=== PATIENT | female | born 1985 | race African-American/Black ===

== ENCOUNTER 2016-07-10 09:51 | Inpatient (IN) | payer MEDICAID, OTHER ==
[~2016-07-10] VITALS: Ht 175.3 cm; Wt 97.5 kg
[~2016-07-10 09:51] MED LIST: AMOXICILLIN500 MG ORAL; BACITRACIN15 GM TOPIC; CORTISPORIN-TC10 M1; NKM
[2016-07-10 10:45] VITALS: BP 124/76
[2016-07-10 11:47] VITALS: BP 136/74
[2016-07-10 12:02] LABS: BASOPHILS % (AUTO) 1.8 % (0.0-2.0); EOSINOPHILS % (AUTO) 1.4 % (0.0-3.0); LYMPHOCYTES % (AUTO) 41.3 % (20.0-45.0); MEAN CORPUSCULAR HEMOGLOBIN 29.4 PG (27.0-31.0); MEAN CORPUSCULAR HGB CONC 32.9 G/DL (32.0-36.0); MEAN CORPUSCULAR VOLUME 89 FL (80-99); MEAN PLATELET VOLUME 8.2 FL (6.5-10.1); MONOCYTES % (AUTO) 12.2 % (1.0-10.0); NEUTROPHILS % (AUTO) 43.4 % (45.0-75.0); PLATELET COUNT 208 K/UL (150-450); RED BLOOD COUNT 4.42 M/UL (4.20-5.40); RED CELL DISTRIBUTION WIDTH 11.1 % (11.6-14.8); WHITE BLOOD COUNT 3.7 K/UL (4.8-10.8)
[2016-07-10 12:03] LABS: APPEARANCE,URINE SLIGHTLY CLOUDY; KETONES,URINE NEGATIVE (NEGATIVE); LEUKOCYTE ESTERASE ,URINE 2+ (NEGATIVE); NITRITE,URINE NEGATIVE (NEGATIVE); PH,URINE 6 (4.5-8.0); PROTEIN,URINE 2+ (NEGATIVE); UROBILINOGEN,URINE 1 MG/DL (0.0-1.0)
[2016-07-10 12:06] LABS: ICTOTEST NEGATIVE
[2016-07-10 12:15] LABS: ALANINE AMINOTRANSFERASE 13 U/L (3-33); ANION GAP 13 (5-15); ASPARTATE AMINO TRANSFERASE 19 U/L (5-40); CALCIUM 9.4 mg/dL (8.6-10.2); CARBON DIOXIDE 27 mEQ/L (20-30); CHLORIDE 100 mEQ/L (98-107); CREATININE 0.8 mg/dL (0.5-0.9); GLOMERULAR FILTRATION RATE > 60 mL/min (>60); HEMOLYSIS 12; LIPASE 16 U/L (< 60); POTASSIUM 3.6 mEQ/L (3.4-4.9); SODIUM 140 mEQ/L (135-145); TOTAL PROTEIN 7.5 g/dL (6.6-8.7)
[2016-07-10 12:24] LABS: BACTERIA,URINE FEW /HPF; MUCUS,URINE MODERATE /LPF (NONE/OCC); SQUAMOUS EPITHELIAL CELL,UR FEW /LPF (NONE/OCC)
[2016-07-10] MEDS ORDERED: cefTRIAXone 2 GM in NS 110 ML IVPB ONE (13:15)
[2016-07-10] MEDS ORDERED: Oxycodone/Acetaminophen 5-325 ORAL ONE (13:15)
[2016-07-10 14:00] VITALS: BP 118/70
--- NOTE | 2016-07-10 14:20 | Emergency Room Report ---
History of Present Illness General Chief Complaint: Earache Source: Patient Present Illness HPI 30 YOF here for continued bilateral ear pain and drainage L>R despite 2x tx with otic Abx and oral Amoxicillin by PMD. Denies facial muscle weakness, eye pain, headache, fever/chill, neck pain, muscle weakness. History of lupus. On prednisone daily. Allergies: Coded Allergies: CLINDAMYCIN (Verified Allergy, Mild, Rash, 12/07/12) Patient History Past Medical History: other - SLE Past Surgical History: none Pertinent Family History: none Social History: Denies: alcohol use, drug use, smoking Last Menstrual Period: 06/22/16 Now: No Immunizations: UTD Reviewed Nursing Documentation: PMH: Agreed, PSxH: Agreed Nursing Documentation-PMH Hx Seizures: Yes Review of Systems All Other Systems: negative except mentioned in HPI Physical Exam Vital Signs Date Time Temp Pulse Resp B/P Pulse Ox O2 Delivery O2 Flow Rate FiO2 07/10/16 09:56 98.2 73 16 122/77 98 Room Air Sp02 EP Interpretation: reviewed, normal General Appearance: normal inspection, well appearing, no apparent distress, alert, GCS 15, non-toxic Head: normocephalic, atraumatic Eyes: bilateral eye EOMI, bilateral eye PERRL ENT: normal ENT inspection, hearing grossly normal, normal pharynx, no angioedema, normal voice, uvula midline, moist mucus membranes, other - Bilateral TMs injected with vesciles on TMs. Drainage seen in left ear canal Neck: normal inspection, full range of motion, supple, no bony tend Respiratory: normal inspection, lungs clear, normal breath sounds, no respiratory distress, no retraction, no wheezing Cardiovascular #1: regular rate, rhythm, no edema Gastrointestinal: normal inspection, normal bowel sounds, non tender, soft, no guarding, no hernia Genitourinary: no CVA tenderness Musculoskeletal: normal inspection, back normal, normal range of motion, Edson' s Sign negative Neurologic: normal inspection, alert, oriented x3, responsive, auto body worker III-XII nml as tested, motor strength/tone normal, speech normal Psychiatric: normal inspection, judgement/insight normal, mood/affect normal Skin: normal inspection, normal color, no rash Lymphatic: normal inspection Medical Decision Making Diagnostic Impression: Primary Impression: Bullous myringitis of both ears ER Course Bullous myringitis, failed outpatient 2x Amoxicillin Possible failure d/t immunosuppressant from prednisone Labs: Leukopenia./ H&H stable. UA ?UTI IV Rocephin given for possible UTI and as tertiary tx for bullous myringitis Will also give Azithro given correlation with mycoplasma Additional analgesia given here Endorsed to Dr Bernstein at 319pm to med/surg bed Last Vital Signs Date Time Temp Pulse Resp B/P Pulse Ox O2 Delivery O2 Flow Rate FiO2 07/10/16 11:47 98.2 72 13 136/74 100 Room Air Status: improved Disposition: ADMITTED INPATIENT Condition: Serious Referrals: [employer] [facility] AVI VARMA (PCP) KENYA BOURGEOIS M.D. Jul 10, 2016 14:20
[2016-07-10] MEDS ORDERED: Azithromycin Inj IV ONE (15:09)
[2016-07-10] MEDS ORDERED: Azithromycin 500 MG in NS 275 ML IV ONE (15:15)
[2016-07-10] MEDS ORDERED: KEPPRA500 M4 ORAL (15:41)
[2016-07-10] MEDS ORDERED: PREDNISONE20 M1 PO (15:41)
[2016-07-10 15:52] VITALS: BP 123/74
[2016-07-10 17:00] VITALS: BP 122/66
[2016-07-10] MEDS ORDERED: Zolpidem 5mg tab ORAL PRN (17:00)
[2016-07-10] MEDS ORDERED: Mylanta II UD 30ml ORAL PRN (17:00)
[2016-07-10] MEDS ORDERED: Miralax 17gm pkt ORAL PRN (17:00)
[2016-07-10] MEDS ORDERED: Morphine Sulfate 2mg/ml Inj IVP PRN (17:00)
[2016-07-10] MEDS ORDERED: LORazepam Inj 2mg/ml 1ml IV PRN (17:00)
--- NOTE | 2016-07-10 17:01 | History and Physical ---
History of Present Illness General Date patient seen: Jul 10, 2016 Reason for Hospitalization: Earache Present Illness HPI 30 year old female presented to [facility] wtih CC of bilateral ear pain and drainage L>R despite 2x tx with otic Abx and oral Amoxicillin by PMD. Denies facial muscle weakness, eye pain, headache, fever/chill, neck pain, muscle weakness.Pt was diagnosed to have bullous Myringitis and admitted for IV antibiotics. Allergies: Coded Allergies: CLINDAMYCIN (Verified Allergy, Mild, Rash, 12/07/12) Medication History Scheduled Levetiracetam (Keppra), 500 MG ORAL EVERY 12 HOURS, (Reported) Miscellaneous Medications Prednisone (Prednisone), 20 MG PO, (Reported) Discontinued Medications Amoxicillin* (Amoxil*), 500 MG ORAL EVERY 8 HOURS Discontinued Reason: Therapy completed Bacitracin (Bacitracin), 1 APPLIC TOPIC THREE TIMES A DAY Discontinued Reason: Therapy completed Neomy Sulf/Colist Sul/Hc/Thonz (Cortisporin-Tc Ear Susp), 2 DROP .ROUTE TID Discontinued Reason: Therapy completed Patient History Healthcare decision maker Resuscitation status Advanced Directive on File Review of Systems All Other Systems: negative except mentioned in HPI Physical Exam General Appearance: WD/WN Lines, tubes and drains: peripheral, central line HEENT: normocephalic, anicteric Neck: non-tender, normal alignment, limited range of motion Respiratory/Chest: chest wall non-tender, lungs clear Cardiovascular/Chest: normal peripheral pulses, normal rate Genitourinary/Rectal: normal genital exam, heme negative stool Extremities: normal range of motion Last 24 Hour Vital Signs Date Time Temp Pulse Resp B/P Pulse Ox O2 Delivery O2 Flow Rate FiO2 07/10/16 16:15 98.1 07/10/16 16:10 98.1 64 15 123/74 100 Room Air 79 07/10/16 15:52 98.1 79 15 123/74 100 Room Air 64 07/10/16 14:00 98.2 76 13 118/70 100 Room Air 07/10/16 11:47 98.2 72 13 136/74 100 Room Air 07/10/16 10:45 98.2 62 16 124/76 100 Room Air 07/10/16 09:56 98.2 73 16 122/77 98 Room Air Laboratory Tests Test 07/10/16 11:45 White Blood Count 3.7 K/UL (4.8-10.8) L Red Blood Count 4.42 M/UL (4.20-5.40) Hemoglobin 13.0 G/DL (12.0-16.0) Hematocrit 39.5 % (37.0-47.0) Mean Corpuscular Volume 89 FL (80-99) Mean Corpuscular Hemoglobin 29.4 PG (27.0-31.0) Mean Corpuscular Hemoglobin Concent 32.9 G/DL (32.0-36.0) Red Cell Distribution Width 11.1 % (11.6-14.8) L Platelet Count 208 K/UL (150-450) Mean Platelet Volume 8.2 FL (6.5-10.1) Neutrophils (%) (Auto) 43.4 % (45.0-75.0) L Lymphocytes (%) (Auto) 41.3 % (20.0-45.0) Monocytes (%) (Auto) 12.2 % (1.0-10.0) H Eosinophils (%) (Auto) 1.4 % (0.0-3.0) Basophils (%) (Auto) 1.8 % (0.0-2.0) Urine Color Yellow Urine Appearance Slightly cloudy Urine pH 6 (4.5-8.0) Urine Specific Eckley 1.020 (1.005-1.035) Urine Protein 2+ (NEGATIVE) H Urine Glucose (UA) Negative (NEGATIVE) Urine Ketones Negative (NEGATIVE) Urine Occult Blood 4+ (NEGATIVE) H Urine Nitrite Negative (NEGATIVE) Urine Bilirubin 1+ (NEGATIVE) H Urine Ictotest Negative Urine Urobilinogen 1 MG/DL (0.0-1.0) H Urine Leukocyte Esterase 2+ (NEGATIVE) H Urine RBC 5-10 /HPF (0 - 2) H Urine WBC 5-10 /HPF (0 - 2) H Urine Squamous Epithelial Cells Few /LPF (NONE/OCC) Urine Bacteria Few /HPF (NONE) Urine Mucus Moderate /LPF (NONE/OCC) H Urine HCG, Qualitative Negative Sodium Level 140 mEQ/L (135-145) Potassium Level 3.6 mEQ/L (3.4-4.9) Chloride Level 100 mEQ/L (98-107) Carbon Dioxide Level 27 mEQ/L (20-30) Anion Gap 13 (5-15) Blood Urea Nitrogen 7 mg/dL (7-23) Creatinine 0.8 mg/dL (0.5-0.9) Estimat Glomerular Filtration Rate > 60 mL/min (>60) Glucose Level 88 mg/dL (74-106) Calcium Level 9.4 mg/dL (8.6-10.2) Total Bilirubin 0.6 mg/dL (0.0-1.2) Aspartate Amino Transf (AST/SGOT) 19 U/L (5-40) Alanine Aminotransferase (ALT/SGPT) 13 U/L (3-33) Alkaline Phosphatase 49 U/L (35-104) Total Protein 7.5 g/dL (6.6-8.7) Albumin 3.9 g/dL (3.5-5.2) Globulin 3.6 g/dL Albumin/Globulin Ratio 1.0 (1.0-2.7) Lipase 16 U/L (< 60) Height (Feet): 5 Height (Inches): 9.00 Weight (Pounds): 215 Assessment/Plan Problem List: (1) Bullous myringitis of both ears ICD Codes: H73.013 - Bullous myringitis, bilateral SNOMED: 57003231 Assessment/Plan Iv antibiotics check cultures no ENT available to see Medical HMO pts at this facility. GRISELDA NARAYANAN Jul 10, 2016 17:01
--- NOTE | 2016-07-10 17:31 | Consultation ---
Consult Note Consult Note ID Dic # [id number] ZAKIYA CASTRO M.D. Jul 10, 2016 17:31
[2016-07-11] VITALS: BP 107/64
[2016-07-11] MEDS: Oxycodone/Acetaminophen 5-325 ORAL PRN ×3 (00:23→16:23)
--- NOTE | 2016-07-11 00:58 | Consultation ---
DATE OF CONSULTATION: 07/10/2016 INFECTIOUS DISEASES CONSULTATION CONSULTING PHYSICIAN: Horace Carolina M.D. ATTENDING PHYSICIAN: Juan Daniel Benrstein M.D. REFERRING PHYSICIAN: Juan Daniel Bernstein M.D. REASON FOR CONSULTATION: Evaluation of the patient for bilateral otitis media and antibiotic management. HISTORY OF PRESENT ILLNESS: The patient is a 30-year-old female with past medical significant for lupus and seizure disorder who came to the hospital with chief complaint of decreased hearing in both ears, significant pain. The patient has been admitted as an inpatient for otitis media. Infectious Disease consultation has been requested for further evaluation of the patient's antibiotic management. PAST MEDICAL HISTORY: As mentioned. ALLERGIES: Clindamycin. SOCIAL HISTORY: Negative for alcohol or drug abuse. FAMILY HISTORY: Noncontributory. REVIEW OF SYSTEMS: negative. PHYSICAL EXAMINATION: VITAL SIGNS: Temperature 98 degrees, blood pressure 122/74, pulse 86, and respiratory rate 18. HEENT: Mouth, no thrush. No icterus. Bilateral TMs are mildly enlarged. No tenderness over the mastoid area. NECK: No lymphadenopathy. CHEST: Coarse breathing sounds. HEART: S1 and S2. ABDOMEN: Soft and nontender. EXTREMITIES: No cyanosis. NEUROLOGIC: Awake and alert. LABORATORY DATA: White blood cells 3.7, hemoglobin 13, and platelets 288,000. UA - 5 to 10 white blood cells. BUN 7 and creatinine 0.8. ALT, AST and alkaline phosphatase are unremarkable. ASSESSMENT: The patient is a 30-year-old female with multiple medical problems, who was admitted to this medical center for bilateral otitis media that did not respond to two courses of amoxicillin. The patient may have Strep pneumococcal. The patient will benefit from treatment with IV Rocephin. PLAN: 1. We will start the patient on IV Rocephin 2 g daily. 2. BNP. 3. If the patient does not improve, we may consider CT scan of bilateral temporal bones. Based on the patient's clinical course and laboratories, we will do further recommendation. Thank you, Dr. Bernstein, for allowing me to participate in the care of this patient. I will follow the patient with you during this hospitalization. Horace Carolina M.D. DR: ERICK JOB#: [id number] CC:
[2016-07-11 04:00] VITALS: BP 92/54
[2016-07-11 08:23] LABS: MEAN CORPUSCULAR HEMOGLOBIN 30.3 PG (27.0-31.0); MEAN CORPUSCULAR HGB CONC 33.8 G/DL (32.0-36.0); MEAN CORPUSCULAR VOLUME 90 FL (80-99); MEAN PLATELET VOLUME 8.1 FL (6.5-10.1); PLATELET COUNT 185 K/UL (150-450); RED BLOOD COUNT 3.85 M/UL (4.20-5.40); RED CELL DISTRIBUTION WIDTH 11.2 % (11.6-14.8); WHITE BLOOD COUNT 2.9 K/UL (4.8-10.8)
[2016-07-11 08:45] LABS: THYROID STIMULATING HORMONE 0.218 uIU/mL (0.300-4.500)
[2016-07-11 08:47] LABS: ALANINE AMINOTRANSFERASE 11 U/L (3-33); ANION GAP 13 (5-15); ASPARTATE AMINO TRANSFERASE 15 U/L (5-40); CALCIUM 8.5 mg/dL (8.6-10.2); CARBON DIOXIDE 25 mEQ/L (20-30); CHLORIDE 102 mEQ/L (98-107); CHOLESTEROL 201 mg/dL (< 200); CHOLESTEROL/HDL RATIO 4.6 (3.3-4.4); CREATININE 0.8 mg/dL (0.5-0.9); GLOMERULAR FILTRATION RATE > 60 mL/min (>60); HEMOLYSIS 5; LDL CHOLESTEROL (CALC.) 146 mg/dL (60-99); POTASSIUM 3.8 mEQ/L (3.4-4.9); SODIUM 140 mEQ/L (135-145); TOTAL PROTEIN 6.3 g/dL (6.6-8.7)
[2016-07-11 08:50] VITALS: BP 128/66
[2016-07-11] MEDS: PredniSONE 20mg tab ORAL SCH (08:55)
[2016-07-11 10:42] LABS: BAND NEUTROPHILS % (MANUAL) 0 % (0-8); BASOPHILS % (MANUAL) 0 % (0-2); EOSINOPHILS % (MANUAL) 3 % (0-3); LYMPHOCYTES % (MANUAL) 48 % (20-45); NEUTROPHILS % (MANUAL) 37 % (45-75); PLATELET ESTIMATE ADEQUATE; PLATELET MORPHOLOGY NORMAL; TOTAL CELLS COUNTED 100
[2016-07-11 12:00] VITALS: BP 126/74
[2016-07-11] MEDS: cefTRIAXone 2 GM in D5W 110 ML IVPB SCH (12:54)
[2016-07-11] MEDS: Morphine Sulfate 2mg/ml Inj IVP PRN ×2 (13:09→20:59)
[2016-07-11 16:00] VITALS: BP 121/75
--- NOTE | 2016-07-11 16:49 | Pulmonology Progress Note ---
Assessment/Plan Problems: (1) Bullous myringitis of both ears Assessment/Plan iv antibiotics check cultures improving somewhat Subjective ROS Limited/Unobtainable: No Allergies: Coded Allergies: CLINDAMYCIN (Verified Allergy, Mild, Rash, 12/07/12) Objective Last 24 Hour Vital Signs Date Time Temp Pulse Resp B/P Pulse Ox O2 Delivery O2 Flow Rate FiO2 07/11/16 16:00 98.1 69 18 121/75 94 Room Air 07/11/16 12:00 98.4 64 18 126/74 98 Room Air 07/11/16 08:50 97.9 81 16 128/66 97 07/11/16 04:00 97.2 79 18 92/54 92 Room Air 07/11/16 00:00 97.9 69 18 107/64 99 Room Air 07/10/16 17:00 97.7 67 16 122/66 97 Room Air Intake and Output 07/10/16 07/11/16 19:00 07:00 # Voids 1 General Appearance: WD/WN HEENT: normocephalic, atraumatic Respiratory/Chest: chest wall non-tender, lungs clear Cardiovascular: normal peripheral pulses, normal rate Abdomen: normal bowel sounds, soft, non tender Genitourinary: normal external genitalia Extremities: no cyanosis Skin: no rash, no lesions Neurologic/Psychiatric: facing slitter II-XII grossly normal, normal mood/affect Lymphatic: no neck adenopathy, no groin adenopathy Laboratory Tests 07/11/16 07:43: White Blood Count 2.9L, Red Blood Count 3.85L, Hemoglobin 11.7L, Hematocrit 34.5L, Mean Corpuscular Volume 90, Mean Corpuscular Hemoglobin 30.3, Mean Corpuscular Hemoglobin Concent 33.8, Red Cell Distribution Width 11.2L, Platelet Count 185, Mean Platelet Volume 8.1, Neutrophils (%) (Auto) , Lymphocytes (%) (Auto) , Monocytes (%) (Auto) , Eosinophils (%) (Auto) , Basophils (%) (Auto) , Differential Total Cells Counted 100, Neutrophils % ( Manual) 37L, Lymphocytes % (Manual) 48H, Monocytes % (Manual) 12H, Eosinophils % (Manual) 3, Basophils % (Manual) 0, Band Neutrophils 0, Platelet Estimate Adequate, Platelet Morphology Normal, Red Blood Cell Morphology Normal, Sodium Level 140, Potassium Level 3.8, Chloride Level 102, Carbon Dioxide Level 25, Anion Gap 13, Blood Urea Nitrogen 7, Creatinine 0.8, Estimat Glomerular Filtration Rate > 60, Glucose Level 92, Calcium Level 8.5L, Total Bilirubin 0.3 , Aspartate Amino Transf (AST/SGOT) 15, Alanine Aminotransferase (ALT/SGPT) 11, Alkaline Phosphatase 42, Total Protein 6.3L, Albumin 3.2L, Globulin 3.1, Albumin /Globulin Ratio 1.0, Triglycerides Level 57, Cholesterol Level 201H, LDL Cholesterol 146H, HDL Cholesterol 44, Cholesterol/HDL Ratio 4.6H, Thyroid Stimulating Hormone (TSH) 0.218L Current Medications Medications (Trade) Dose Ordered Sig/Alex Route PRN Reason Start Time Stop Time Status Last Admin Dose Admin Acetaminophen (Tylenol) 650 mg Q4H PRN ORAL fever 07/10/16 17:00 08/09/16 16:59 Al Hydroxide/Mg Hydroxide (Mylanta II) 30 ml Q6H PRN ORAL dyspepsia 07/10/16 17:00 08/09/16 16:59 Ceftriaxone Sodium/Dextrose (Rocephin/D5W) 110 ml @ 220 mls/hr Q24H IVPB 07/11/16 13:00 07/18/16 12:59 07/11/16 12:54 Dextrose STAT PRN IV Hypoglycemia 07/10/16 17:00 08/09/16 16:59 Levetiracetam (Keppra) 500 mg EVERY 12 HOURS ORAL 07/10/16 21:00 08/09/16 20:59 07/11/16 08:55 Lorazepam (Ativan 2mg/ml 1ml) 0.5 mg Q4H PRN IV For Anxiety 07/10/16 17:00 07/17/16 16:59 Morphine Sulfate (Morphine Sulfate) 1 mg Q4H PRN IVP Breakthrough Pain 07/10/16 22:00 07/17/16 21:59 07/11/16 13:09 Ondansetron HCl (Zofran) 4 mg Q6H PRN IVP Nausea & Vomiting 07/10/16 17:00 08/09/16 16:59 07/10/16 20:40 Oxycodone/ Acetaminophen (Percocet 5-325) 1 tab Q6H PRN ORAL For Pain 07/10/16 22:00 07/17/16 21:59 07/11/16 16:23 Polyethylene Glycol (Miralax) 17 gm HSPRN PRN ORAL Constipation 07/10/16 17:00 08/09/16 16:59 Prednisone (predniSONE) 20 mg DAILY ORAL 07/11/16 09:00 08/10/16 08:59 07/11/16 08:55 Zolpidem Tartrate (Ambien) 5 mg HSPRN PRN ORAL Insomnia 07/10/16 17:00 08/09/16 16:59 GRISELDA NARAYANAN Jul 11, 2016 16:49
[2016-07-11 19:00] VITALS: BP 127/70
[2016-07-12] VITALS: BP 123/64
[2016-07-12 06:15] VITALS: BP 109/55
[2016-07-12 08:05] VITALS: BP 110/63
[2016-07-12] MEDS: PredniSONE 20mg tab ORAL SCH (08:28)
[2016-07-12] MEDS: Morphine Sulfate 2mg/ml Inj IVP PRN ×3 (08:29→16:37)
--- NOTE | 2016-07-12 09:53 | Infectious Diseases Prog Note ---
Assessment/Plan Assessment/Plan A: The patient is a 30-year-old female with Bilateral otitis media decreased hearing in both ears Hx of lupus Seizure disorder PLAN: Cont on IV Rocephin 2 g daily d # 3 Monitor CBC, BMP CT scan of bilateral temporal bones ENT eval In/out pt . Subjective Constitutional: Denies: anorexia, chills, drenching sweats, fatigue, fever, no symptoms, other Allergies: Coded Allergies: CLINDAMYCIN (Verified Allergy, Mild, Rash, 12/07/12) Objective Vital Signs Last 24 Hour Vital Signs Date Time Temp Pulse Resp B/P Pulse Ox O2 Delivery O2 Flow Rate FiO2 07/12/16 08:05 97.7 80 15 110/63 96 Room Air 07/12/16 06:15 98.0 75 20 109/55 98 Room Air 07/12/16 00:00 97.9 77 19 123/64 99 Room Air 07/11/16 19:00 97.7 63 20 127/70 97 Room Air 07/11/16 16:00 98.1 69 18 121/75 94 Room Air 07/11/16 12:00 98.4 64 18 126/74 98 Room Air Height (Feet): 5 Height (Inches): 9.00 Weight (Pounds): 215 HEENT: anicteric Respiratory/Chest: lungs clear Cardiovascular: regularly irregular Abdomen: no organomegaly Current Medications Medications (Trade) Dose Ordered Sig/Alex Route PRN Reason Start Time Stop Time Status Last Admin Dose Admin Acetaminophen (Tylenol) 650 mg Q4H PRN ORAL fever 07/10/16 17:00 08/09/16 16:59 Al Hydroxide/Mg Hydroxide (Mylanta II) 30 ml Q6H PRN ORAL dyspepsia 07/10/16 17:00 08/09/16 16:59 Ceftriaxone Sodium/Dextrose (Rocephin/D5W) 110 ml @ 220 mls/hr Q24H IVPB 07/11/16 13:00 07/18/16 12:59 07/11/16 12:54 Dextrose STAT PRN IV Hypoglycemia 07/10/16 17:00 08/09/16 16:59 Levetiracetam (Keppra) 500 mg EVERY 12 HOURS ORAL 07/10/16 21:00 08/09/16 20:59 07/12/16 08:28 Lorazepam (Ativan 2mg/ml 1ml) 0.5 mg Q4H PRN IV For Anxiety 07/10/16 17:00 07/17/16 16:59 Morphine Sulfate (Morphine Sulfate) 1 mg Q4H PRN IVP Breakthrough Pain 07/10/16 22:00 07/17/16 21:59 07/12/16 08:29 Ondansetron HCl (Zofran) 4 mg Q6H PRN IVP Nausea & Vomiting 07/10/16 17:00 08/09/16 16:59 07/10/16 20:40 Oxycodone/ Acetaminophen (Percocet 5-325) 1 tab Q6H PRN ORAL For Pain 07/10/16 22:00 07/17/16 21:59 07/11/16 16:23 Polyethylene Glycol (Miralax) 17 gm HSPRN PRN ORAL Constipation 07/10/16 17:00 08/09/16 16:59 Prednisone (predniSONE) 20 mg DAILY ORAL 07/11/16 09:00 08/10/16 08:59 07/12/16 08:28 Zolpidem Tartrate (Ambien) 5 mg HSPRN PRN ORAL Insomnia 07/10/16 17:00 08/09/16 16:59 ZAKIYA CASTRO M.D. Jul 12, 2016 09:53
[2016-07-12 11:37] VITALS: BP 126/74
[2016-07-12] MEDS: cefTRIAXone 2 GM in D5W 110 ML IVPB SCH (12:27)
--- NOTE | 2016-07-12 15:11 | Diagnostic Imaging Report ---
Indication: Ear pain. Otitis media Technique: Continuous helical transaxial imaging of the temporal bones. No IV contrast was administered. High resolution coronal and axial 2-D reformats were also obtained. Study obtained in a Siemens sensation [address] Total Dose length Product (DLP): [address] Dose Index Volume (CTDIvol): 44 mGy Comparison: None Findings: Study was performed bilaterally. The middle ear canal is clear. The middle ear ossicles appear intact. The external ear is unremarkable. There may be some thickening of the tympanic membrane bilaterally, which should be confirmed and evaluated clinically. There is no bony erosion or evidence of cholesteatoma. The inner ear structures are normal in appearance including the semicircular canals, vestibule, cochlea, facial nerve canal. IAC, carotid and jugular canals are unremarkable. Mastoids are clear bilaterally. Impression: Negative high-resolution CT of the mastoid temporal bones.
[2016-07-12 16:00] VITALS: BP 130/72
[2016-07-12] MEDS ORDERED: Tubing IV Secondary IV ONE (18:36)
[2016-07-15] MEDS ORDERED: AUGMENTIN 875-1 EAC1 ORAL (09:19)
--- NOTE | 2016-07-15 09:24 | Discharge Summary ---
Discharge Summary Hospital Course Date of Admission Jul 10, 2016 at 14:52 Date of Discharge Jul 12, 2016 at 18:37 Admitting Diagnosis -bullous myringitis HPI Vanessa Hargrove is a 30 year old female who was admitted on Jul 10, 2016 at 14: 52 for Bullous Myringitis Hospital Course dc summary #[id number] Discharge Condition Upon Discharge: stable Discharge Disposition Patient was discharged to Home (01) Discharge Diagnoses: Discharge Instructions Discharge Instructions Special Instructions I have been assigned to complete a D/C Summary on this account. I was not involved in the patient management Naye Tinoco NP (Vanchtein) Jul 15, 2016 09:24
--- NOTE | 2016-07-15 23:48 | Discharge Summary 2 SIG ---
DATE OF ADMISSION: 07/10/2016 DATE OF DISCHARGE: 07/12/2016 REASON FOR ADMISSION: 30 years old female with history of lupus, chronic prednisone use and seizure disorder came to the emergency department complaining of bilateral ear pain and drainage, left more than right , despite two days treatment with otic antibiotics and oral amoxicillin by her primary doctor. She denied fever or chills. She denied eye pain or change in vision. She denied facial muscle weakness, headaches, neck pain, and muscle weakness. The patient does report decreased hearing. Workup in the emergency department revealed leukopenia. Pulse oximetry stable on room air. Hemoglobin and hematocrit were stable. Urinalysis revealed no evidence of no urinary tract infection. The patient was started on intravenous Rocephin . The patient was also given azithromycin. Analgesia was provided. The patient was admitted to the hospital for further management. ADMITTING DIAGNOSES: 1. Bullous myringitis 2. History of lupus 3. Seizure disorder 4. Decreased hearing HOSPITAL STAY: ID consult was requested. ID continued the patient on Rocephin. There was no ENT available to see the O patient in the hospital. However CT of the auditory canals was done and revealed no evidence of cholesteatoma. No bony erosions. The patient was cleared for discharge on oral Augmentin for additional five days by ID specialist. No seizure activity while in the hospital. Keppra was continued. Prednisone was continued. The patient was advised to follow up as outpatient with the ENT per insurance. The patient was also advised due to the high dose of the prednisone she is using to check bone scan., and possibly start taking calcium and vitamin D supplements. Also noted low TSH. Recommended to check thyroid function test as an outpatient with primary medical doctor. The patient understood discharge instructions. DISCHARGE DIAGNOSES: 1. Bullous myringitis 2. Decreased hearing 3. History of lupus 4. Seizure disorder. DISCHARGE MEDICATIONS: See medication reconciliation list. DISCHARGE INSTRUCTIONS: Follow up with the primary medical doctor and ENT as outpatient per insurance. Juan Daniel Bernstein M.D. I have been assigned to dictate discharge summary on this account and I was not involved in the patient's management. Naye Tinoco N.P. (Vanchtein) DR: MILES JOB#: [id number] CC: ALINE
--- NOTE | 2016-07-16 12:19 | Diagnostic Imaging Report ---
APPROVED REPORT CPT Code: 59663 Present Symptoms Comments: R/O DVT BILATERAL: Imaging reveals a patent deep venous system bilaterally. There is no evidence of thrombus within the femoral, popliteal or tibial segments. The greater saphenous veins are also within normal limits. Doppler indicates normal spontaneous flow within these segments.
== END 2016-07-12 18:37 | disposition home or self-care (01) | DRG 113 ==
LOC: EMR 10:39 → 4E 14:52 → EDBEDREQ 15:17
DX: H73.013 Bullous myringitis, bilateral (principal); M32.9 Systemic lupus erythematosus, unspecified; G40.909 Epilepsy, unspecified, not intractable, without status epilepticus; Z88.1 Allergy status to other antibiotic agents
CPT/HCPCS: 36415; 70480; 80053; 80061; 80299; 81003; 81025; 83690; 84443; 85007; 85025; 93970; J2405